=== PATIENT | female | born 1975 | race Caucasian/White ===

== ENCOUNTER 2017-08-04 09:31 | Emergency (ER) | payer OTHER ==
[~2017-08-04] VITALS: Ht 160 cm; Wt 67.9 kg
[~2017-08-04 09:31] MED LIST: HYDR-4079 PO; LIDO1OIN4 TD; SUMA50TA15 PO; ZNF/4 PO
[2017-08-04 09:37] VITALS: BP 120/74; TEMP 36.7; Ht 160 cm; Wt 67.9 kg
--- NOTE | 2017-08-04 10:10 | EMERGENCY ROOM VISIT NOTE ---
History First contact with patient: 09:37 Chief Complaint: KNEEPAIN Stated Complaint: LEFT KNEE, CAN NOT DO STEPS History of Present Illness The patient is a 41 year old female who presents to the Emergency Room with complaints of left knee pain beginning . She reports she twisted her leg that day and that she inverted her knee. She states as soon as this happened, she noticed her knee swell up, and that since then, it has been painful, 8/10 in severity, and that she has been unable to bend it, or use the stairs. She denies trauma to the knee, fever, or chills. She reports she has a history of arthritis in her right knee and back, for which she takes [place]. Review of Systems See HPI for pertinent positives & negatives. A total of 10 systems reviewed and were otherwise negative. Past Medical/Surgical History Medical Problems: (1) Exploratory laparoscopy (2) kidney stones Family History Cancer Diabetes mellitus Gallbladder disease Heart disease Kidney disease Kidney stones Social History Smoking Status: Never Smoker Alcohol Use: none Marital Status: Housing Status: lives with family Occupation Status: employed Current/Historical Medications Scheduled PRN Hydrocodone/Acetaminophen 10MG/325MG ([place] 10MG/325MG), 1 TAB PO Q6 PRN for Pain Physical Exam Vital Signs Date Time Temp Pulse Resp B/P (MAP) Pulse Ox O2 Delivery O2 Flow Rate FiO2 08/04/17 11:03 90 16 98 08/04/17 09:37 36.7 95 18 120/74 98 Room Air Physical Exam Heart: Regular rate and rhythm. There is a normal S1 and S2 with no murmurs, clicks, or gallops appreciated. Lungs: Clear to auscultation bilaterally with no wheezes, rales, or rhonchi. Abdomen: Soft, completely nontender, nondistended, with good bowel sounds. There are no palpable pulsatile masses or hepatosplenomegaly. There is no guarding, rigidity, or rebound noted. Knee: Left knee without effusion, no erythema, not hot to touch. Tender to palpation over the anterior aspect of the patella. No laxity with ACL or PCL testing. Pain with varus testing, but no instability on varus or valgus testing. Medical Decision & Procedures ER Provider Diagnostic Interpretation: L KNEE 3 VIEWS CLINICAL HISTORY: Left knee pain COMPARISON: None. DISCUSSION: No fractures or dislocations are visualized. There are no erosive or destructive changes. There is equivocal trace joint effusion. IMPRESSION: 1. No fractures identified 2. Equivocal trace joint effusion ED Course 9:37: The patient was evaluated in room A2. A complete history and physical exam was performed. 9:50: The case was discussed with Dr. Cameron. 10:00: The patient was seen with Dr. Cameron 10:45: The x-ray results came back negative for acute fracture. The results were discussed with the patient. Ordered knee immobilizer and crutches. Medical Decision Differential Diagnosis includes ligamentous strain, meniscal tear, ligamentous tear, patellofemoral syndrome, septic arthritis, osteoarthritis. Her left knee xray was negative for an acute fracture. She will be discharged with a knee immobilizer, crutches and will follow up with orthopedics. This was discussed with the patient and she was agreeable to the plan. She was also counselled on using over the counter NSAIDs to help with the pain. Impression Primary Impression: Sprain of knee Departure Information Dispostion Home / Self-Care Referrals No Doctor, Assigned (PCP) Patient Instructions [facility] Resident Tracking Resident Involvement: Resident Care Provided Care Provided: Adult ED Problem Qualifiers Primary Impression: Sprain of knee Encounter type: initial encounter Involved ligament of knee: unspecified ligament Laterality: left Qualified Codes: S83.92XA - Sprain of unspecified site of left knee, initial encounter
--- NOTE | 2017-08-04 10:36 | DIAGNOSTIC IMAGING REPORT ---
L KNEE 3 VIEWS CLINICAL HISTORY: Left knee pain COMPARISON: None. DISCUSSION: No fractures or dislocations are visualized. There are no erosive or destructive changes. There is equivocal trace joint effusion. IMPRESSION: 1. No fractures identified 2. Equivocal trace joint effusion Electronically signed by: Jose Armando Ibarra M.D. 08/04/2017 10:35 AM Dictated Date/Time: 08/04/2017 10:34 AM
--- NOTE | 2017-08-04 10:57 | EMERGENCY ROOM VISIT NOTE ---
History Report prepared by Davis: Quique Martinez Under the Supervision of: Dr. Paras Cameron D.O. First contact with patient: 09:37 Chief Complaint: KNEEPAIN Stated Complaint: LEFT KNEE, CAN NOT DO STEPS History of Present Illness The patient is a 41 year old female who presents to the Emergency Room with complaints of left knee pain that began about 1 week ago. She rates her pain an 8/10 in severity. At that time, she reports she twisted her leg inverting her knee in the process. She states as soon as this happened, her knee swelled up causing her significant pain since. Her pain is exacerbated with movement, exertion, and weight bearing. She denies trauma to the knee, fever, or chills. She reports she has a history of arthritis in her right knee and back, for which she takes [place]. Source of History: patient Onset: about 1 week ago Position: knee (right) Symptom Intensity: 8/10 Quality: ache Timing: constant Modifying Factors (Worsening): exertion, movement, other (Weight bearing) Associated Symptoms: No fevers, No chills Note: She denies any trauma to the knee. Review of Systems See HPI for pertinent positives & negatives. A total of 10 systems reviewed and were otherwise negative. Past Medical & Surgical Medical Problems: (1) Exploratory laparoscopy (2) kidney stones Family History Cancer Diabetes mellitus Gallbladder disease Heart disease Kidney disease Kidney stones Social History Smoking Status: Never Smoker Alcohol Use: none Marital Status: Housing Status: lives with family Occupation Status: employed Current/Historical Medications Scheduled PRN Hydrocodone/Acetaminophen 10MG/325MG ([place] 10MG/325MG), 1 TAB PO Q6 PRN for Pain Allergies Coded Allergies: Ciprofloxacin (Verified Allergy, Intermediate, RASH, 08/04/17) Cephalexin (Verified Allergy, Mild, HIVES, SWELLING, 08/04/17) Shellfish (Verified Allergy, Mild, SWELLING, HIVES, 08/04/17) Iodinated Diagnostic Agents (Unverified Allergy, Unknown, HIVES AND RASH, 08/04/17) Penicillins (Unverified Allergy, Unknown, NAUSEA AND VOMITING, 08/04/17) Sulfa Antibiotics (Unverified Allergy, Unknown, REDNESS, IRRITATION OF SKIN/VEIN, 08/04/17) Egg (Unverified Adverse Reaction, Unknown, BLOATING, 08/04/17) Physical Exam Vital Signs Date Time Temp Pulse Resp B/P (MAP) Pulse Ox O2 Delivery O2 Flow Rate FiO2 08/04/17 11:03 90 16 98 08/04/17 09:37 36.7 95 18 120/74 98 Room Air Physical Exam CONSTITUTIONAL/VITAL SIGNS: Reviewed / noted above. GENERAL: Non-toxic in appearance. INTEGUMENTARY: Warm, dry, and [place]. HEAD: Normocephalic. EYES: without scleral icterus or trauma. ENT/OROPHARYNX: clear and moist. LYMPHADENOPATHY/NECK: Is supple without lymphadenopathy or meningismus. RESPIRATORY: Lungs clear and equal. CARDIOVASCULAR: Regular rate and rhythm. GI/ABDOMEN: Soft and nontender. No organomegaly or pulsatile mass. No rebound or guarding. Normal bowel sounds. EXTREMITIES: Left knee reveals tenderness over the left patellar area. No appreciated effusion. No significant swelling. BACK: No CVA tenderness. NEUROLOGICAL: Intact without focal deficits. PSYCHIATRIC: normal affect. MUSCULOSKELETAL: Normally developed with good muscle tone. Medical Decision & Procedures ER Provider Diagnostic Interpretation: Radiology results as stated below per my review and radiologist interpretation: L KNEE 3 VIEWS CLINICAL HISTORY: Left knee pain COMPARISON: None. DISCUSSION: No fractures or dislocations are visualized. There are no erosive or destructive changes. There is equivocal trace joint effusion. IMPRESSION: 1. No fractures identified 2. Equivocal trace joint effusion Electronically signed by: Jose Armando Ibarra M.D. 08/04/2017 10:35 AM Dictated Date/Time: 08/04/2017 10:34 AM ED Course 0937: Previous medical records were reviewed. The patient was evaluated in room A2. A complete history and physical examination was performed. 1057: On reevaluation, the patient is resting. I discussed the results and findings with the patient. She verbalized agreement of the treatment plan. She was discharged home. Medical Decision Differential diagnosis: Etiologies such as fracture, dislocation, neurovascular compromise, compartment syndrome, soft tissue injury, as well as others were entertained. This is a 41-year-old female who presents to the ED with a chief complaint of left knee pain. The patient states that around day she twisted her knee. She states that it is been bothering since that time. She has difficulty with flexing and as well as with walking on it. The patient denies any other injuries. She denies any swelling or calf pain. She does feel that the knee is a little more swollen than the right. Exam is noted above. She has no ligamentous laxity. No effusion is noted. She has range of motion with minimal discomfort. She does have tenderness to palpation over the patellar area. There is no increased warmth around the area. Distally she has no calf pain and has good distal pulses. X-ray did not reveal any significant issues. The patient was provided crutches and a knee immobilizer. She has seen orthopedics before for her right knee. She was told to follow-up with orthopedics for reevaluation of her left knee. Medication Reconcilliation Current Medication List: was personally reviewed by me Blood Pressure Screening Patient's blood pressure: Normal blood pressure Blood pressure disposition: Did not require urgent referral Impression Primary Impression: Sprain of knee Scribe Attestation The scribe's documentation has been prepared under my direction and personally reviewed by me in its entirety. I confirm that the note above accurately reflects all work, treatment, procedures, and medical decision making performed by me. Departure Information Dispostion Home / Self-Care Referrals No Doctor, Assigned (PCP) Peter Forrest D.O. Forms HOME CARE DOCUMENTATION FORM, IMPORTANT VISIT INFORMATION Patient Instructions My [facility] [employer] Additional Instructions Use knee immobilizer and crutches as needed. Follow-up with orthopedics for reevaluation. Take [id number] pain medication for discomfort.
[2017-08-04 11:03] VITALS: PULSE 90; O2SAT 98
== END 2017-08-04 11:04 | disposition home or self-care (01) ==
LOC: C.EDB 09:35 → C.EDA 11:04
DX: S83.92XA Sprain of unspecified site of left knee, initial encounter (principal); X58.XXXA Exposure to other specified factors, initial encounter; Z87.442 Personal history of urinary calculi; Z88.0 Allergy status to penicillin; Z88.2 Allergy status to sulfonamides; Z88.8 Allergy status to other drugs, medicaments and biological substances; Z91.018 Allergy to other foods; Z91.041 Radiographic dye allergy status; Z80.9 Family history of malignant neoplasm, unspecified; Z83.3 Family history of diabetes mellitus; Z83.79 Family history of other diseases of the digestive system; Z82.49 Family history of ischemic heart disease and other diseases of the circulatory system; Z84.1 Family history of disorders of kidney and ureter